=== PATIENT | male | born 1955 | race Caucasian/White ===

== ENCOUNTER 2017-04-09 00:57 | Emergency (ER) | payer OTHER ==
[2017-04-09 01:18] VITALS: BP 157/107; PULSE 124; RESP 18; TEMP 98; O2SAT 97
--- NOTE | 2017-04-09 01:57 | C.PDOC ---
History Of Present Illness 62 y/o male presents to ER c/o of h/o of H-pilori treated several years ago c/o of intermittent bouts of diarrhea and constipation and mild cramps x months.Pt denies abd pain now , no N?V?D at this time. Pt has seen PMD and is not satisfied with their care and is here requesting testing by blood and stools for H pilori. Pt refuses to give anymore h/o wants to know first if test will be done. Pt denies back pain contrary to stated triage c/o, states that back pain has resolved Time Seen by Provider: 04/09/17 01:23 Chief Complaint (Nursing): Back Pain History Per: Patient History/Exam Limitations: no limitations Onset/Duration Of Symptoms: Intermittent Episodes Current Symptoms Are (Timing): Still Present Location Of Pain/Discomfort: Other (no abd pain) Associated Symptoms: Diarrhea, Constipation (intermittent). denies: Nausea, Vomiting, Back Pain, Urinary Symptoms Past Medical History Vital Signs: Last Vital Signs Temp 98 F 04/09/17 01:09 Pulse 124 H 04/09/17 01:09 Resp 18 04/09/17 01:09 BP 157/107 H 04/09/17 01:09 Pulse Ox 97 04/09/17 01:57 - Medical History PMH: Bipolar Disorder, Depression, HTN, Hypercholesterolemia Surgical History: Appendectomy Family History: States: Unknown Family Hx - Social History Hx Tobacco Use: No Hx Alcohol Use: No Hx Substance Use: No - Immunization History Hx Tetanus Toxoid Vaccination: No Hx Influenza Vaccination: No Hx Pneumococcal Vaccination: No Review Of Systems Constitutional: Negative for: Fever Gastrointestinal: Negative for: Nausea, Vomiting, Abdominal Pain, Diarrhea, Constipation, Melena, Rectal Pain Musculoskeletal: Negative for: Back Pain Physical Exam - Physical Exam Appears: Well, Non-toxic, No Acute Distress Skin: Normal Color Eye(s): bilateral: Normal Inspection Gastrointestinal/Abdominal: Other (refused exam) Back: Other (refused exam) ED Course And Treatment O2 Sat by Pulse Oximetry: 97 Progress Note: Pt is requesting H pilori testing, and refused to be examined by me. Pt became very verbally agressive when he was informed that H pilori test cannot be done in the ER. Pt was advised to follow up with GI or PMD and became upset and states I know where to follow up. Pt refused any further exam to determine if othwr tests were warranted in ED. Pt refused repeat vitas, HR 120 and eloped from ED Disposition - Disposition Referrals: [facility] [Outside] Disposition: ELOPEMENT - ER ONLY Disposition Time: 01:56 Condition: UNKNOWN Forms: [employer] (Danish) - Clinical Impression Clinical Impression: Encounter for medical screening examination
== END 2017-04-09 02:00 | disposition left against medical advice (07) ==
LOC: C.ER 00:57 → SUPCPDRO 00:57 → C.ER 02:00
DX: Z00.00 Encounter for general adult medical examination without abnormal findings (principal)

== ENCOUNTER 2017-11-18 03:15 | Emergency (ER) | payer OTHER ==
[2017-11-18] MEDS ORDERED: Enalaprilat 2.5 MG/2 ML IV STA (03:42)
[2017-11-18] MEDS ORDERED: Nitroglycerin 2% Ointment Foilpak UD TOP STA (03:43)
[2017-11-18] MEDS ORDERED: Enalaprilat 2.5 MG/2 ML ONE (03:51)
[2017-11-18] MEDS ORDERED: Nitroglycerin 2% Ointment Foilpak UD TOP ONE (03:51)
--- NOTE | 2017-11-18 04:05 | C.PDOC ---
History Of Present Illness Patient c/o mid sternal pressure type chest pain and SOB that started prior to arrival. Patient sts he woke up feeling chest discomfort and SOB. Patient sts he took his spouse's HCTZ. Patient sts his BP at home was high and called EMS. Chief Complaint (Nursing): Chest Pain History Per: Patient History/Exam Limitations: no limitations Onset/Duration Of Symptoms: Hrs (1) Current Symptoms Are (Timing): Still Present Severity: Moderate Pain Scale Rating Of: 4 Quality: Pressure Associated Symptoms: Dyspnea, Other (anxiety) Exacerbating Factors: None Past Medical History Reviewed: Historical Data, Nursing Documentation, Vital Signs Vital Signs: Last Vital Signs Temp 98.5 F 11/18/17 03:29 Pulse 88 11/18/17 06:20 Resp 14 11/18/17 06:20 BP 111/80 11/18/17 06:20 Pulse Ox 96 11/18/17 06:20 - Medical History PMH: Bipolar Disorder, Depression, HTN, Hypercholesterolemia Denies: Chronic Kidney Disease Surgical History: Appendectomy Family History: States: Unknown Family Hx - Social History Hx Tobacco Use: No Hx Alcohol Use: No Hx Substance Use: No - Immunization History Hx Tetanus Toxoid Vaccination: No Hx Influenza Vaccination: No Hx Pneumococcal Vaccination: No Review Of Systems Except As Marked, All Systems Reviewed And Found Negative. Physical Exam - Physical Exam Appears: Non-toxic, No Acute Distress Skin: Normal Color, Warm, No Diaphoretic Head: Atraumatic, Normacephalic Eye(s): bilateral: Normal Inspection Neck: Normal, Normal ROM Cardiovascular: Rhythm Regular Respiratory: Normal Breath Sounds Gastrointestinal/Abdominal: Soft, No Tenderness Extremity: Normal ROM, No Pedal Edema, No Calf Tenderness, No Swelling Neurological/Psych: Oriented x3, Normal Speech, Normal Cognition, Normal Motor, Normal Sensation ED Course And Treatment - Laboratory Results Result Diagrams: 11/18/17 04:03 11/18/17 04:03 ECG: Interpreted By Me ECG Rhythm: Sinus Rhythm ECG Interpretation: No Acute Changes Rate From EC O2 Sat by Pulse Oximetry: 98 Progress Note: CXR, EKG, labs, ASA po, Nitro paste, Vasotec. On re-evaluation BP is down, Chest Xray neg, the first set ofvcardiac enzymes - neg. Case was d/ w who accepted case to [facility] for observation Disposition - Disposition Disposition: HOSPITALIZED Disposition Time: 06:21 Condition: FAIR Forms: [facility] ([place]) - Clinical Impression Clinical Impression: Chest pain, SOB (shortness of breath), Hypertension Decision To Admit - Pt Status Changed To: Hospital Disposition Of: Observation - . Bed Request Type: Telemetry Admitting Physician: Rosetta Villalpando Patient Diagnosis: Chest pain, SOB (shortness of breath), Hypertension
[2017-11-18 04:07] LABS: BASO % 0.4 % (0.0-2.0); EOS # 0.2 K/uL (0.0-0.7); EOS % 2.5 % (0.0-4.0); HEMOGLOBIN 17.2 g/dL (12.0-18.0); LYMPH # 2.4 K/uL (1.0-4.3); LYMPH % 31.6 % (20.0-40.0); MEAN CELL VOLUME 89.8 fL (80.0-94.0); MEAN CORPUSCULAR HEMOGLOBIN 30.4 pg (27.0-31.0); MEAN CORPUSCULAR HGB CONC 33.8 g/dL (33.0-37.0); MEAN PLATELET VOLUME 8.9 fL (7.2-11.7); MONO # 0.6 K/uL (0.0-0.8); MONO % 8.3 % (0.0-10.0); NEUT # 4.3 K/uL (1.8-7.0); NEUT % 57.2 % (50.0-75.0); RBC 5.66 Mil/uL (4.40-5.90); RED CELL DISTRIBUTION WIDTH 14.4 % (11.5-14.5); WHITE BLOOD COUNT 7.6 K/uL (4.8-10.8)
[2017-11-18 04:09] LABS: URINE BILIRUBIN NEGATIVE (NEGATIVE); URINE BLOOD 1+ (NEGATIVE); URINE CLARITY Clear (Clear); URINE COLOR Colorless (YELLOW); URINE GLUCOSE (UA) NORMAL (Normal); URINE LEUKOCYTE ESTERASE NEG Leu/uL (Negative); URINE PROTEIN NEGATIVE (NEGATIVE); URINE UROBILINOGEN NORMAL mg/dL (0.2-1.0)
[2017-11-18 04:15] LABS: PROTHROMBIN TIME 10.9 SECONDS (9.7-12.2)
[2017-11-18 04:17] LABS: ALB/GLOB RATIO 1.2 (1.0-2.1); ALBUMIN 4.8 g/dL (3.5-5.0); ALT/SGPT 40 U/L (21-72); AST/SGOT 26 U/L (17-59); BLOOD UREA NITROGEN 9 mg/dL (9-20); CALCIUM 9.2 mg/dl (8.6-10.4); GFR AFRICAN-AMERICAN > 60; GFR NON-AFRICAN AMERICAN > 60
[2017-11-18 04:25] LABS: BARBITURATES, UR NEGATIVE (NEGATIVE); BENZODIAZEPINES, UR NEGATIVE (NEGATIVE); OPIATES, UR POSITIVE (NEGATIVE); PHENCYCLIDINE, UR NEGATIVE (NEGATIVE)
[2017-11-18 04:58] LABS: CK-MB 1.23 ng/mL (0.0-3.38)
[2017-11-18 08:29] VITALS: BP 151/93; PULSE 92; RESP 17; TEMP 98.5; O2SAT 97
--- NOTE | 2017-11-18 08:59 | RAD ---
PROCEDURE: CHEST RADIOGRAPH, 1 VIEW HISTORY: SOB, CP COMPARISON: None available. FINDINGS: LUNGS: Clear. PLEURA: No pneumothorax or pleural fluid seen. CARDIOVASCULAR: Normal. OSSEOUS STRUCTURES: No significant abnormalities. VISUALIZED UPPER ABDOMEN: Normal. OTHER FINDINGS: None. IMPRESSION: No active disease.
--- NOTE | 2017-11-21 21:42 | CARD ---
APPROVED REPORT EKG Measurement Heart [id number] <Conclusion> Normal sinus rhythm Normal ECG
== END 2017-11-18 07:49 | disposition left against medical advice (07) ==
LOC: C.ER 03:15 → UNDOADMOB 06:19 → C.9E 06:19 → C.ER 07:49
DX: I10 Essential (primary) hypertension (principal); R07.9 Chest pain, unspecified; R06.02 Shortness of breath; E78.00 Pure hypercholesterolemia, unspecified

== ENCOUNTER 2017-11-28 07:29 | Day surgery (SDC) | payer OTHER ==
[~2017-11-28 07:29] MED LIST: Iohexol 240 (50 ml) ONE; Lidocaine Hydrochloride 0 ML INJ ONE; MethylPREDNISolone Depo 40 mg/ml Inj ONE
[2017-11-28] MEDS ORDERED: Propofol 10 mg/ml Inj (20 ML) ONE (07:32)
[2017-11-28] MEDS ORDERED: Bupivacaine 0.25% Inj(30mL) ONE (08:18)
[2017-11-28 13:07] VITALS: RESP 15
[2017-11-28 13:10] VITALS: BP 114/61; PULSE 85; TEMP 97.5; O2SAT 98
--- NOTE | 2017-11-28 20:01 | OP ---
PROCEDURE DATE: PREOPERATIVE DIAGNOSES: 1. Lumbar radiculopathy. 2. Lumbar herniated disc. 3. Myalgias. POSTOPERATIVE DIAGNOSES: 1. Lumbar radiculopathy. 2. Lumbar herniated disc. 3. Myalgias. PROCEDURE: 1. Bilateral L4-L5 selective nerve root block. 2. Epidurogram. 3. Trigger point injections. X-RAY: [id number], Fluoroscopy of the spine. ANESTHESIA: MAC/local. SURGEON: Anabell Hendricks MD COMPLICATIONS: None. BLOOD LOSS: 2 mL. INDICATION: This patient has intractable back and leg pain that is unresponsive to conservative management. The pain is adversely affecting quality of life and activities of daily living. TECHNIQUE: After comprehensive informed consent was obtained, the risks of the procedure explained and questions answered. The patient understands fully the risks are, but not limited to possible bleeding, infection, headache, nervous tissue injury and worsening of their pain. The patient was placed prone on the operating table in a comfortable position. Confirmation of the procedure to be performed was obtained from the patient. The skin overlying the area to be injected was cleaned in a strict sterile fashion using chlorhexidine. Sterile drapes were placed around the area to be injected. Using the C-arm in the anteroposterior view, the levels to be injected were identified under fluoroscope. Then, the C-arm was obliqued in the coronal plane until the facet joint was delineated approximately 25 degrees. The area to be injected was superficially anesthetized with 3 mL of 1% lidocaine using a 27-gauge, 1.25-inch needle. Under fluoroscopic guidance, a 22-gauge, 3.5-inch short bevel needle was advanced and directed toward the tip of the pars. In the lateral view, ideal placement of the needle was obtained with the tip in the cephalodorsal corner of the neural foramen. In the anteroposterior plane and under continuous fluoroscopy, 1 mL of non-ionic, water-soluble contrast (Omnipaque 180) was injected to visualize the nerve root and make sure there was no vascular uptake. After negative aspiration for blood, 1 mL of preservative-free 0.5% Marcaine in 80 mg of Depo-Medrol was slowly injected at each level. The patient experienced no painful paresthesia during the injection. Epidurogram: The patient underwent transforaminal epidural steroid injection today. The epidural was observed at the level of L4-L5 under AP and lateral fluoroscopic guidance. A 2 mL of Omnipaque 200 contrast was injected that evenly spread from level L3 to S1 level with posterior-anterior dye spread bilaterally at level of L4-L5 and L5-S1. There appeared to be a moderate degree spondylosis at level of L4-L5 and moderate degree of spondylosis at the level of L5-S1 with disc protrusion at the level of L4-L5. The intervertebral disc height at the level of L4-L5 was slightly less than normal and intervertebral disc height at the level of L5-S1 was well maintained. The neural foramen appeared to be patent. Good epidural dye containment from L3-S1 with intervertebral disc protrusion at the level of L4-L5, maintaining less than normal intervertebral disc height at level L4-L5. Spondylosis noted at the level of L4 through S1. Copies of the images are on file. Trigger Point Injections: A 27-gauge needle was used to inject trigger point areas in paralumbar muscles, parathoracic muscles, and upper gluteal muscles. Needle was redirected to sciatic nerve branches. Total volume of 10 mL of 0.25% Marcaine. Intermittent aspiration was done throughout with no heme or CSF aspirated throughout. Patient tolerated procedure well. DISPOSITION: Patient was taken to the recovery room in stable condition. Patient was given instructions to follow up in two weeks and was discharged in stable condition. No events or complications. Anabell Hendricks MD cc:
== END 2017-11-28 10:28 | disposition home or self-care (01) ==
LOC: C.SDS 07:29
PROVIDERS: ATTEND Anesthesiology Pain Medicine
DX: M51.16 Intervertebral disc disorders with radiculopathy, lumbar region (principal)
CPT/HCPCS: 20552; 62323; J1030; J2704; Q9966

== ENCOUNTER 2018-04-10 08:50 | Day surgery (SDC) | payer OTHER ==
[2018-04-10 09:40] VITALS: TEMP 97.6
[2018-04-10] MEDS ORDERED: Midazolam 2 MG/2 ML VIAL ONE (10:43)
[2018-04-10] MEDS: MethylPREDNISolone Depo 40 mg/ml Inj ONE ×2 (10:43→10:49)
[2018-04-10] MEDS ORDERED: Propofol 10 mg/ml Inj (20 ML) ONE (10:56)
[2018-04-10] MEDS ORDERED: Iohexol 240 (50 ml) ONE (11:02)
[2018-04-10] MEDS ORDERED: Bupivacaine 0.75% Inj(30mL) ONE (11:02)
[2018-04-10] MEDS ORDERED: Lactated Ringer's 1,000 ML IV SCH (11:30)
[2018-04-10 16:43] VITALS: BP 152/90; PULSE 89; RESP 20; O2SAT 98
--- NOTE | 2018-04-10 17:01 | RAD ---
Date of service: 04/10/2018 PROCEDURE: Intraoperative fluoroscopy HISTORY: LUMBAR SPONDYLOSIS COMPARISON: Not available TECHNIQUE: Intraoperative fluoroscopy was provided for an interventional pain management procedure. Total time of fluoroscopy was 12.3 seconds. The cumulative dose was 2.29 mGy. FINDINGS: Multiple fluoroscopic spot films are submitted. IMPRESSION: Fluoroscopy provided
--- NOTE | 2018-04-11 07:55 | OP ---
Copied To: Anabell Hendricks MD Attending MD: Anabell Hendricks MD PROCEDURE DATE: 04/10/2018 PREOPERATIVE DIAGNOSES: 1. Lumbar spondylosis without myelopathy. 2. Myalgias. POSTOPERATIVE DIAGNOSES: 1. Lumbar spondylosis without myelopathy. 2. Myalgias. PROCEDURE: 1. Bilateral L3-L4, L4-L5, L5-S1 medial branch blocks. 2. Trigger point injections. X-RAY: [id number], fluoroscopy of the spine. ANESTHESIA: MAC/local. SURGEON: Anabell Hendricks MD COMPLICATIONS: None. BLOOD LOSS: 2 mL. INDICATION: On physical exam, this patient's pain was made worse by side bending toward the affected side or extending the spine (backward bending). The patient's back will generally feel stiff in the morning, and prolonged inactivity such as sitting, standing for prolonged periods causes the axial pain to refer to the mid lower back. This pain is intractable and unresponsive to conservative management. The pain is adversely affecting quality of life and activities of daily living. TECHNIQUE: After comprehensive informed consent was obtained, the risks of the procedure explained and questions answered. The patient was placed prone on the operating table in a comfortable position. Confirmation of the procedure to be performed was obtained from the patient. The skin overlying the area to be injected was confirmed and cleaned in a strict sterile fashion using chlorhexidine. Sterile drape was placed around the area to be injected. The area to be injected was superficially anesthetized with 1 mL of 1% lidocaine using a 27-gauge, 1.25-inch needle at each level noted above. Under fluoroscopic guidance, a curved 22-gauge, 3.5-inch spinal needle was advanced until the tip of the needle was ventro-medial to position the tip adjacent to the articular pillar, in contact with bone midway between the zygapophyseal joints above and below. The patient experienced no paresthesia during needle placement. The bone was contacted, and the C-arm was rotated laterally to confirm proper needle placement. The patient experienced no paresthesias in the upper extremities during needle placement. After negative aspiration for blood, 0.5 mL of non-ionic contrast was injected to outline the medial branch nerve. Then, 1 mL of a mixture of 0.25% Marcaine and 80 mg of Depo-Medrol was slowly injected at each level. The needle was removed, and a Band-Aid was placed over the puncture site. The fluoroscopic image was stored for the medical record. Trigger Point Injections: A 27-gauge needle was used to inject trigger point areas in paralumbar muscles, parathoracic muscles, and upper gluteal muscles. Needle was redirected to sciatic nerve branches. Total volume of 12 mL of 0.25% Marcaine mixed with 40 mg Kenalog. Intermittent aspiration was done throughout with no heme or CSF aspirated throughout. Patient tolerated procedure well. ASSESSMENT: Upon discharge, the patient noted more than 80% relief in the affected painful area. The patient was given a pain diary to utilize over the next 4 hours while performing activities that are normally aggravating. This will provide a quantitative value of how much of the pain is related to osteoarthritis of the facets. The patient understands that this block is diagnostic and temporary. If there is significant pain relief during the next 4 hours, we will schedule for radiofrequency ablation of the offending pain fibers around the affected facet joints to help provide long-term relief. DISPOSITION: Patient was given instructions to follow up in two weeks and was discharged in stable condition. No events or complications. Anabell Hendricks MD
== END 2018-04-10 12:45 | disposition home or self-care (01) ==
LOC: C.SDS 08:50
PROVIDERS: ATTEND Anesthesiology Pain Medicine
DX: M47.816 Spondylosis without myelopathy or radiculopathy, lumbar region (principal); M79.1 Myalgia
CPT/HCPCS: 20553; 64493; 64494; 64495; J1030; J2001; J2250; J2704; Q9966

== ENCOUNTER 2018-07-14 13:55 | Emergency (ER) | payer OTHER ==
[2018-07-14 14:07] VITALS: BP 171/103; PULSE 95; TEMP 99; O2SAT 97
--- NOTE | 2018-07-14 14:15 | C.PDOC ---
History Of Present Illness 63 y/o male, with no history of lung disease, presents to ER complaining of SOB for the past several months that happens once or few times a week, associated with throat pain. Patient states it would go away on its own in an hour or 2. Denies asthma, recent travel, chest pain, nausea, or vomiting. Time Seen by Provider: 07/14/18 14:15 Chief Complaint (Nursing): Shortness Of Breath History Per: Patient History/Exam Limitations: no limitations Onset/Duration Of Symptoms: Days Current Symptoms Are (Timing): Still Present Past Medical History Reviewed: Historical Data, Nursing Documentation, Vital Signs Vital Signs: Last Vital Signs Temp 99 F 07/14/18 14:01 Pulse 95 H 07/14/18 14:01 Resp 16 07/14/18 14:01 BP 171/103 H 07/14/18 14:01 Pulse Ox 97 07/14/18 14:01 - Medical History PMH: Bipolar Disorder, Depression, HTN, Hypercholesterolemia Denies: Chronic Kidney Disease Surgical History: Appendectomy Family History: States: No Known Family Hx - Social History Hx Tobacco Use: No Hx Alcohol Use: No Hx Substance Use: No - Immunization History Hx Tetanus Toxoid Vaccination: No Hx Influenza Vaccination: No Hx Pneumococcal Vaccination: No Review Of Systems Except As Marked, All Systems Reviewed And Found Negative. ENT: Positive for: Throat Pain Cardiovascular: Negative for: Chest Pain Respiratory: Positive for: Shortness of Breath Gastrointestinal: Negative for: Nausea, Vomiting Physical Exam - Physical Exam Appears: Well, Non-toxic, No Acute Distress Skin: Warm, Dry Head: Atraumatic, Normacephalic Eye(s): bilateral: Normal Inspection Ear(s): Bilateral: Normal Nose: Normal Oral Mucosa: Moist Tongue: Normal Appearing, No Swelling, No Lesions Lips: Normal Appearing Gingiva: Normal Appearing Throat: No Erythema, No Exudate, No Drooling, No Mass, Other (erythema and mild swelling of uvula) Neck: Normal, Normal ROM, Supple Lymphatic: Normal Exam, No Adenopathy Chest: Symmetrical, No Deformity Cardiovascular: Rhythm Regular, No Murmur Respiratory: Normal Breath Sounds, No Rales, No Rhonchi, No Wheezing Gastrointestinal/Abdominal: Normal Exam Back: Normal Inspection Neurological/Psych: Oriented x3, Normal Speech, Normal Motor, Normal Sensation Gait: Steady ED Course And Treatment O2 Sat by Pulse Oximetry: 97 (RA) Pulse Ox Interpretation: Normal Medical Decision Making Medical Decision Making: Impression: SOB Plan: --Bloodwork --Decadron --Norvasc Patient was seen yesterday by his PMD and had blood drawn, and was referred to ENT, has an appt tomorrow, but patient does not remember the name of the ENT doctor. Patient states he does not like the "dynamics" of the hospital and has signed AMA. The patient declines to have further medical evaluation and treatment and wishes to leave the Emergency Department. This action is against my medical advice to the patient, and with informed refusal. The patient was told that evaluation and treatment are necessary and a full explanation of the rationale was given. The risks of leaving were explained to the patient and include, but are not limited to, worsening of known or currently unknown conditions, permanent disability and from undiagnosed or untreated conditions The patient has the capacity to make this informed decision and understands the clinical situation and my explanation of the risks of leaving. The patient voluntarily accepts these risks, and a signed AMA form documenting our conversation was obtained. The patient was given the opportunity to ask questions and reconsider. The patient was encouraged to return to the Emergency Department at any time for further care. Disposition Counseled Patient/Family Regarding: Diagnosis, Need For Followup, Rx Given - Disposition Referrals: Toño Mercado MD [Medical Doctor] - Disposition: AGAINST MEDICAL ADVICE Disposition Time: 15:02 Condition: STABLE Additional Instructions: YOU ARE LEAVING HOSPITAL AGAINST MEDICAL ADVISE. PLEASE FOLLOW UP WITH YOUR DOCTOR AND ENT TOMORROW. IF SYMPTOMS GET WORSE OR ANY NEW CONCERNING SYMPTOMS DEVELOP RETURN TO ED. Prescriptions: predniSONE [predniSONE Tab] 2 tab PO DAILY #6 tab Forms: [employer] (Swedish), General Discharge Instructions - Clinical Impression Clinical Impression: Uvulitis, Hypertension, Shortness of breath - PA / DEWATERER OPERATOR / Resident Statement MD/DO has reviewed & agrees with the documentation as recorded. - Scribe Statement The provider has reviewed the documentation as recorded by the Lalita Power All medical record entries made by the Caitlynibneal were at my direction and personally dictated by me. I have reviewed the chart and agree that the record accurately reflects my personal performance of the history, physical exam, medical decision making, and the department course for this patient. I have also personally directed, reviewed, and agree with the discharge instructions and disposition.
[2018-07-14] MEDS ORDERED: Dexamethasone 4 mg/1 ml IVP STA (14:34)
[2018-07-14 15:30] VITALS: RESP 18
== END 2018-07-14 15:07 | disposition left against medical advice (07) ==
LOC: C.ER 13:55
DX: K12.2 Cellulitis and abscess of mouth (principal); I10 Essential (primary) hypertension; R06.02 Shortness of breath

== ENCOUNTER 2018-08-08 10:35 | Emergency (ER) | payer OTHER ==
[2018-08-08 10:39] VITALS: RESP 18; O2SAT 97; BMI 23.6
--- NOTE | 2018-08-08 11:27 | C.PDOC ---
History Of Present Illness 63 y/o male presents to ED with c/o swelling to throat for 3 days worse yesterday. Patient states he was seen at ED recently 1 month ago and diagnosed with Uvulitis, given prednisone. Patient reports improvement with prednisone but never followed up with ENT. Patient took Oxycodone 3am today and Ibuprofen hours [employer]. Patient denies sob, difficulty swallowing, fever, chills or any other complaints at this time. Time Seen by Provider: 08/08/18 11:13 Chief Complaint (Nursing): ENT Problem History Per: Patient History/Exam Limitations: None Onset/Duration Of Symptoms: Days Current Symptoms Are (Timing): Still Present Past Medical History Reviewed: Historical Data, Nursing Documentation, Vital Signs Vital Signs: Last Vital Signs Temp 98.6 F 08/08/18 10:37 Pulse 96 H 08/08/18 10:37 Resp 18 08/08/18 10:37 BP 179/93 H 08/08/18 10:37 Pulse Ox 97 08/08/18 10:37 - Medical History PMH: Bipolar Disorder, Depression, HTN, Hypercholesterolemia Surgical History: Appendectomy Family History: States: No Known Family Hx - Social History Hx Tobacco Use: No Hx Alcohol Use: No Hx Substance Use: No - Immunization History Hx Tetanus Toxoid Vaccination: No Hx Influenza Vaccination: No Hx Pneumococcal Vaccination: No Review Of Systems Except As Marked, All Systems Reviewed And Found Negative. Constitutional: Negative for: Fever, Chills ENT: Positive for: Throat Pain, Throat Swelling Respiratory: Negative for: Cough, Shortness of Breath Physical Exam - Physical Exam Additional Physical Exam Comments: Constitutional: No acute distress. Head: Normocephalic. Atraumatic. Eyes: PERRL. ENT: Moist mucous membranes. Erythema to tonsils, pharynx and uvula. No exudates. Uvula midline. Neck: Supple. No nuchal rigidity Cardiovascular: Regular rate. Radial pulse 2+ bilaterally. Chest: No tenderness. Respiratory: Clear to auscultation bilaterally. No stridor GI: Soft. Nontender. Nondistended. Back: No CVA tenderness. Musculoskeletal: No tenderness or swelling of extremities. Skin: No rash. Neurologic: Alert, no focal deficit. ED Course And Treatment O2 Sat by Pulse Oximetry: 97 (RA) Pulse Ox Interpretation: Normal Medical Decision Making Medical Decision Making: Plan: Rapid strep test ordered. Prednisone administered. Strep negative. Patient with patent airway. Discharge home, f/u ENT, continue steroids, return to ED for any worsening breathing, fever, vomiting, stiff neck, or any other problem. Disposition - Disposition Referrals: Charly Hurley MD [Staff Provider] - Disposition: HOME/ ROUTINE Disposition Time: 12:08 Condition: STABLE Prescriptions: Prednisone [Deltasone] 3 tab PO DAILY #12 tablet Instructions: Sore Throat in Adults Forms: [facility] ([place]) - Clinical Impression Clinical Impression: Pharyngitis - Scribe Statement The provider has reviewed the documentation as recorded by the Caitlynibneal Baker All medical record entries made by the Caitlynibneal were at my direction and personally dictated by me. I have reviewed the chart and agree that the record accurately reflects my personal performance of the history, physical exam, medical decision making, and the department course for this patient. I have also personally directed, reviewed, and agree with the discharge instructions and disposition.
[2018-08-08 12:33] VITALS: BP 148/86; PULSE 84; TEMP 98
== END 2018-08-08 12:32 | disposition home or self-care (01) ==
LOC: C.ER 10:35
DX: J02.9 Acute pharyngitis, unspecified (principal); E78.00 Pure hypercholesterolemia, unspecified; I10 Essential (primary) hypertension